=== PATIENT | female | born 1965 | race African-American/Black ===

== ENCOUNTER 2019-08-25 13:05 | Emergency (ER) | payer MEDICAID ==
[~2019-08-25] VITALS: Ht 172.7 cm; Wt 82.0 kg
[2019-08-25 14:22] VITALS: BP 138/75
[2019-08-25] MEDS ORDERED: KETOROLAC 60MG/2ML VIAL IM ONE (14:30)
== END 2019-08-25 15:40 | disposition home or self-care (01) ==
LOC: ER 14:01
DX: S60.221A Contusion of right hand, initial encounter (principal); I10 Essential (primary) hypertension; F12.10 Cannabis abuse, uncomplicated; X58.XXXA Exposure to other specified factors, initial encounter; Y93.89 Activity, other specified; Y92.89 Other specified places as the place of occurrence of the external cause; Y99.8 Other external cause status
CPT/HCPCS: 73130; 96372; 99283; J1885